=== PATIENT | female | born 2000 | race African-American/Black ===

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

== ENCOUNTER 2019-07-01 14:24 | Emergency (ER) | payer BC ==
[~2019-07-01] VITALS: Ht 165.1 cm; Wt 90.7 kg
[2019-07-01 14:35] VITALS: BP 165/78
[2019-07-01] MEDS ORDERED: AZITHROMYCIN 250 MG TABLET. PO ONE (15:15)
[2019-07-01] MEDS ORDERED: ONDANSETRON ODT 4 MG TAB.RAPDIS. PO ONE (15:15)
[2019-07-01] MEDS ORDERED: cefTRIAXone IM 250 MG VIAL IM ONE (15:15)
--- NOTE | 2019-07-01 15:32 | PHYS DOC ---
Past Medical History Past Medical History: No Pertinent History Additional Past Medical Histor: HEART MURMUR Past Surgical History: No Surgical History Alcohol Use: None Drug Use: None Adult General Chief Complaint Chief Complaint: FOOT INJURY PAIN HPI HPI Patient is a 18 year old Female who presents with vaginal itching and odor, bilateral lateral feet pain x 1 month. Patient states she has switched her shoes but she is still having soreness in her feet. Patient works at [employer] and is on her feet for long periods of time. Review of Systems Review of Systems : Vaginal Discharge. Denies dysuria or hematuria [] Musculoskeletal: Bilateral lateral foot pain. Denies back pain or joint pain [] All other systems were reviewed and found to be within normal limits, except as documented in this note. Current Medications Current Medications Current Medications Medications (Trade) Dose Ordered Sig/Nhung Start Time Stop Time Status Last Admin Dose Admin Azithromycin (Zithromax) 1,000 mg 1X ONCE 07/01/19 15:15 07/01/19 15:21 DC 07/01/19 15:45 1,000 MG Ceftriaxone Sodium (Rocephin Im) 250 mg 1X ONCE 07/01/19 15:15 07/01/19 15:21 DC 07/01/19 15:45 250 MG Ondansetron HCl (Zofran Odt) 4 mg 1X ONCE 07/01/19 15:15 07/01/19 15:21 DC 07/01/19 15:47 4 MG Allergies Allergies Allergies Coded Allergies Type Severity Reaction Last Updated Verified No Known Drug Allergies 11/17/17 No Physical Exam Physical Exam Constitutional: Well developed, well nourished, no acute distress, non-toxic appearance. [] Skin: Warm, dry, no erythema, no rash. [] Back: No tenderness, no CVA tenderness. [] Extremities: No tenderness, no cyanosis, no clubbing, ROM intact, no edema. [] Neurologic: Alert and oriented X 3, normal motor function, normal sensory function, no focal deficits noted. [] Psychologic: Affect normal, judgement normal, mood normal. Normal Physical Exam[] Current Patient Data Vital Signs Vital Signs Date Time Temp Pulse Resp B/P (MAP) Pulse Ox O2 Delivery O2 Flow Rate FiO2 07/01/19 14:35 97.7 110 17 165/78 (107) 100 Room Air 97.7 Lab Values Laboratory Tests Test 07/01/19 15:20 07/01/19 15:22 Urine Collection Type Unknown Urine Color Yellow Urine Clarity Clear Urine pH 5.5 Urine Specific [place] >=1.030 Urine Protein Negative mg/dL (NEG-TRACE) Urine Glucose (UA) Negative mg/dL (NEG) Urine Ketones (Stick) Trace mg/dL (NEG) Urine Blood Moderate (NEG) Urine Nitrite Positive (NEG) Urine Bilirubin Negative (NEG) Urine Urobilinogen Dipstick 1.0 mg/dL (0.2 mg/dL) Urine Leukocyte Esterase Moderate (NEG) Urine RBC 3-5 /HPF (0-2) Urine WBC 20-40 /HPF (0-4) Urine Squamous Epithelial Cells Mod /LPF Urine Bacteria Many /HPF (0-FEW) Urine Mucus Marked /LPF POC Urine HCG, Qualitative Hcg negative (Negative) Microbiology 07/01/19 Wet Prep - Final, Complete Laboratory Tests Test 07/01/19 15:20 07/01/19 15:22 Urine Collection Type Unknown Urine Color Yellow Urine Clarity Clear Urine pH 5.5 Urine Specific [place] >=1.030 Urine Protein Negative mg/dL (NEG-TRACE) Urine Glucose (UA) Negative mg/dL (NEG) Urine Ketones (Stick) Trace mg/dL (NEG) Urine Blood Moderate (NEG) Urine Nitrite Positive (NEG) Urine Bilirubin Negative (NEG) Urine Urobilinogen Dipstick 1.0 mg/dL (0.2 mg/dL) Urine Leukocyte Esterase Moderate (NEG) Urine RBC 3-5 /HPF (0-2) Urine WBC 20-40 /HPF (0-4) Urine Squamous Epithelial Cells Mod /LPF Urine Bacteria Many /HPF (0-FEW) Urine Mucus Marked /LPF POC Urine HCG, Qualitative Hcg negative (Negative) Microbiology 07/01/19 Wet Prep - Final, Complete EKG EKG [] Radiology/Procedures Radiology/Procedures [] Impressions: [facility] [address] [place] [address] IMAGING REPORT Signed PATIENT: CLAIR PERALES ACCOUNT: [id number] : 2000 LOCATION: ER AGE: 18 SEX: F EXAM STATUS: REG ER ORD. PHYSICIAN: SANJEEV SUAZO APRN REASON: pain UCG first PROCEDURE: FOOT BILAT 3V Exam: Bilateral feet 3 views INDICATION: Pain TECHNIQUE: Frontal, lateral and oblique views of the right and left foot. Comparisons: None FINDINGS: Right foot: Bone mineralization is normal. No acute or healed fractures. Soft tissues are unremarkable. Joint spaces are well-maintained. Left foot: Bone mineralization is normal. No acute or healed fractures. Soft tissues are unremarkable. Joint spaces are well-maintained. IMPRESSION: No acute osseous abnormality of the right or left foot. Electronically signed by: Anna Freeman MD (07/01/2019 4:10 PM) [id number] DICTATED and SIGNED BY: ANNA FREEMAN MD DATE: 07/01/19 1610 Course & Med Decision Making Course & Med Decision Making No extremity swelling. Pupils strong and present. No calf tenderness. Ambulatory with steady gait. No tenderness to palpation of the feet bilaterally and no b ruising or deformity. Abdomen soft and nontender. Patient denies dysuria, abdominal pain, nausea, vomiting, diarrhea, dizziness, headache, fever, chest pain, shortness of air symptoms. She states she is on the Depo shot. She states she's had vaginal itching and odor for the last month. Patient would like to be checked for sexual transmitted diseases. Patient to be treated for Chlamydia and gonorrhea today. Patient is told that these results will be back in 48 hours she'll be called only if they're positive. Pelvic Exam: Molder Fitting present Abdomen: Nontender External Genitalia: Normal Skin Speculum: Normal vaginal mucosa, white cervical discharge Bimanual: No adnexal masses or tenderness, No CMT Dragon Disclaimer Dragon Disclaimer This electronic medical record was generated, in whole or in part, using a voice recognition dictation system. Departure Departure Impression: Primary Impression: Sexually transmissible disease Additional Impressions: Foot pain, bilateral Bacterial vaginosis UTI (urinary tract infection) Disposition: 01 HOME, SELF-CARE Condition: STABLE Referrals: UNKNOWN PCP NAME (PCP) SURI JIMÉNEZ Jr, MD Patient Instructions: Foot Sprain, Sexually Transmitted Disease Additional Instructions: Follow-up with a primary care or a sales and management trainee if needed. Rest and elevate your feet as much as possible Scripts Cephalexin (KEFLEX) 500 Mg Capsule 1 CAP PO BID for 7 Days, #14 CAP 0 Refills Prov: SANJEEV SUAZO APRN 07/01/19 Ondansetron (ONDANSETRON ODT) 4 Mg Tab.rapdis 1 TAB PO PRN Q6-8HRS, #16 TAB Prov: SANJEEV SUAZO APRN 07/01/19 Metronidazole (METRONIDAZOLE) 500 Mg Tablet 1 TAB PO BID for 7 Days, #14 TAB 0 Refills Prov: SANJEEV SUAZO APRN 07/01/19 Problem Qualifiers Additional Impressions: UTI (urinary tract infection) Urinary tract infection type: site unspecified Hematuria presence: without hematuria Qualified Codes: N39.0 - Urinary tract infection, site not specified SANJEEV SUAZO APRN Jul 01, 2019 15:32
[2019-07-01 15:41] LABS: BILIRUBIN,URINE NEGATIVE (NEG); CLARITY,URINE CLEAR; COLOR,URINE YELLOW; NITRITE,URINE POSITIVE (NEG); PH,URINE 5.5; PROTEIN,URINE NEGATIVE (NEG-TRACE)
[2019-07-01] MEDS ORDERED: ONDA4TAB12 PO (15:53)
[2019-07-01] MEDS ORDERED: METR-34 PO (15:53)
--- NOTE | 2019-07-01 16:13 | RAD ---
Exam: Bilateral feet 3 views INDICATION: Pain TECHNIQUE: Frontal, lateral and oblique views of the right and left foot. Comparisons: None FINDINGS: Right foot: Bone mineralization is normal. No acute or healed fractures. Soft tissues are unremarkable. Joint spaces are well-maintained. Left foot: Bone mineralization is normal. No acute or healed fractures. Soft tissues are unremarkable. Joint spaces are well-maintained. IMPRESSION: No acute osseous abnormality of the right or left foot. Electronically signed by: Anna Ortiz MD (07/01/2019 4:10 PM) [facility] [place]
[2019-07-01 16:21] LABS: BACTERIA,URINE MANY /HPF (0-FEW); SQUAMOUS EPITHELIAL CELL,UR MOD /LPF; WBC,URINE 20-40 /HPF (0-4)
[2019-07-01] MEDS ORDERED: CEPH-264 PO (16:25)
[2019-07-02 17:10] LABS: GC PROBE Negative (Negative)
== END 2019-07-01 16:35 | disposition home or self-care (01) ==
LOC: ER 14:24
DX: A64 Unspecified sexually transmitted disease (principal); M25.571 Pain in right ankle and joints of right foot; M25.572 Pain in left ankle and joints of left foot; N76.0 Acute vaginitis; B96.89 Other specified bacterial agents as the cause of diseases classified elsewhere; N39.0 Urinary tract infection, site not specified
CPT/HCPCS: 73630; 81001; 81025; 87086; 87491; 87591; 96372; 99285; J0696; Q0111; Q0144; Q0162